=== PATIENT | female | born 1955 | race Caucasian/White ===

== ENCOUNTER → 2017-09-10 | Day surgery (SDC) | payer BC ==
[2017-09-08 11:46] LABS: BASOPHILS # (AUTO) 0.1 (0.0-0.1); BASOPHILS % 1.1 % (0.0-1.0); EOSINOPHILS # (AUTO) 0.1 (0.0-0.4); EOSINOPHILS % 2.1 % (0.0-6.0); HEMATOCRIT 45.2 % (34.2-44.1); LYMPHOCYTES % 34.7 % (18.0-39.1); MEAN CORPUSCULAR HEMOGLOBIN 31.1 pg (28-32); MEAN CORPUSCULAR HGB CONC 33.2 g/dL (31-35); MEAN CORPUSCULAR VOLUME 93.6 fL (81-99); MONOCYTES # (AUTO) 0.6 (0.2-0.8); MONOCYTES % 10.7 % (4.4-11.3); NEUTROPHILS # (AUTO) 2.9 (2.1-6.9); NEUTROPHILS % 51.2 % (38.7-80.0); PLATELET COUNT 240 x10e3/uL (140-360); RED BLOOD COUNT 4.83 x10e6/uL (3.6-5.1); RED CELL DISTRIBUTION WIDTH 13.3 % (11.7-14.4)
[~2017-09-10] MED LIST: ACETAMINOPHEN 1000 MG/100 ML IV ONE; CLINDAMYCIN PHOS 900MG/ D5W 50 50 ML IV ONE; DEXAMETHASONE SOD PHOS INJ 4 MG/ML VIAL ONE; FENTANYL CITRATE/PF 100MCG/2 ML INJ ONE; GABAPENTIN300 MG PO; GLYCOPYRROLATE INJ 1MG/ 5 ML SYR ONE; LEVOXYL175 MCG PO; LIDOCAINE HCL 2% LOCAL INJ 5 ML SDV VIAL INJ ONE; MIDAZOLAM HCL 2 MG/2 ML VIAL ONE; MYRBETRIQ50 MG PO; NEOSTIGMINE 5 MG/5ML SYR ONE; ONDANSETRON HCL INJ 2 MG/ML VIAL ONE; PHENTERMINE H37.5 MG PO; PROPOFOL IV EMULSION 10 MG/ML 20 ML VIAL ONE; SEVOFLURANE INHAL SOLN 250 ML PEN BTL ONE; SILVER NITRATE SWABS ONE; VIT D PO
--- NOTE | 2017-09-15 15:12 | Operative Report ---
DATE OF PROCEDURE: September 10, 2017 PREOPERATIVE DIAGNOSIS: Postmenopausal bleeding. POSTOPERATIVE DIAGNOSIS: Postmenopausal bleeding. PROCEDURE PERFORMED 1. Hysteroscopy. 2. Dilatation and curettage. INFECTION CONTROL COORDINATOR: None. ANESTHESIA: General. ESTIMATED BLOOD LOSS: Minimal. COMPLICATIONS: None. FINDINGS: Apparently normal uterine cavity during hysteroscopy. Small anteverted uterus. SPECIMENS: Endometrial curettings. INDICATIONS: The patient is a 61-year-old postmenopausal female who was noted to have postmenopausal bleeding. PROCEDURE: Prior to the procedure the risks, benefits and alternatives were discussed, and the patient agreed to proceed. Following anesthesia, the patient was placed in the modified dorsal lithotomy position in [facility], an acute care hospital. Prepping and draping were performed in the typical sterile fashion, and a time out was done. A weighted speculum was then placed in the vagina. The cervix was grasped with a single-toothed tenaculum. The cervix was sequentially dilated, and a hysteroscope was inserted with findings as previously mentioned. The TRUCLEAR device was then inserted into the hysteroscope and used to perform an endometrial curettage under direct visualization. A sharp curettage was then performed until a gritty texture was noted. Endometrial tissue was then sent to pathology. All instruments were removed from the patient. The tenaculum sites were noted to be hemostatic. The patient was awakened in stable condition and sent to the recovery room. All sponge, lap, needle and instrument counts were correct x2. Job#: [id number]
== END | disposition home or self-care (01) ==
LOC: OR 12:09
PROVIDERS: ATTEND Obstetrics & Gynecology Obstetrics
DX: N95.0 Postmenopausal bleeding (principal); E03.9 Hypothyroidism, unspecified; E66.01 Morbid (severe) obesity due to excess calories; Z88.0 Allergy status to penicillin; Z88.2 Allergy status to sulfonamides; Z88.8 Allergy status to other drugs, medicaments and biological substances; Z01.810 Encounter for preprocedural cardiovascular examination; Z01.812 Encounter for preprocedural laboratory examination
CPT/HCPCS: 36415; 58558; 85025; 88305; 93005; J1100; J2001; J2250; J2405; J3490

== ENCOUNTER 2020-10-07 07:54 | Inpatient (IN) | payer MEDICARE, OTHER ==
[~2020-10-07 07:54] MED LIST changes: -ACETAMINOPHEN 1000 MG/100 ML IV ONE; -CLINDAMYCIN PHOS 900MG/ D5W 50 50 ML IV ONE; -DEXAMETHASONE SOD PHOS INJ 4 MG/ML VIAL ONE; +FAMOTIDINE20 MG PO; -FENTANYL CITRATE/PF 100MCG/2 ML INJ ONE; -GLYCOPYRROLATE INJ 1MG/ 5 ML SYR ONE; -LIDOCAINE HCL 2% LOCAL INJ 5 ML SDV VIAL INJ ONE; -MIDAZOLAM HCL 2 MG/2 ML VIAL ONE; -NEOSTIGMINE 5 MG/5ML SYR ONE; +NUTRAVIEW PO; +OMEPRAZOLE40 MG PO; -ONDANSETRON HCL INJ 2 MG/ML VIAL ONE; +PROBIOTIC & AC1 EACH PO; -PROPOFOL IV EMULSION 10 MG/ML 20 ML VIAL ONE; -SEVOFLURANE INHAL SOLN 250 ML PEN BTL ONE; -SILVER NITRATE SWABS ONE; +VESICARE10 MG PO
[2020-10-07] MEDS ORDERED: LEVOFLOXACIN 500MG/D5W 100ML 100 ML IV ONE (08:12)
[2020-10-07] MEDS ORDERED: LYRICA75 MG PO (08:59)
[2020-10-07] MEDS ORDERED: BUPIVACAINE 0.25% 30ML SDV ONE (09:04)
[2020-10-07] MEDS ORDERED: DEXAMETHASONE SOD PHOS INJ 4 MG/ML VIAL ONE (12:25)
[2020-10-07] MEDS ORDERED: ROCURONIUM BROMIDE 10 MG/ML 5ML VIAL IV ONE (12:25)
[2020-10-07] MEDS ORDERED: ONDANSETRON HCL INJ 2MG/ML 2ML 2 MG/ML VIAL ONE ×3 (12:25→16:31)
[2020-10-07] MEDS ORDERED: ATROPINE SULFATE 1 MG/ML VIAL ONE (12:25)
[2020-10-07] MEDS ORDERED: SEVOFLURANE INHAL SOLN 250 ML PEN BTL ONE (12:25)
[2020-10-07] MEDS ORDERED: POVIDONE IODINE 0.05% 0.05 % ML PO ONE (12:25)
[2020-10-07] MEDS ORDERED: LIDOCAINE HCL 2% LOCAL INJ 5 ML SDV VIAL INJ ONE (12:25)
[2020-10-07] MEDS ORDERED: KETOROLAC TROMETHAMINE 30 MG/ML VIAL ONE (12:25)
[2020-10-07] MEDS ORDERED: PROPOFOL IV EMULSION 10 MG/ML 20 ML VIAL ONE (12:25)
[2020-10-07] MEDS ORDERED: NEOSTIGMINE 1 MG/ML 10ML VIAL ONE (12:25)
[2020-10-07] MEDS ORDERED: EPHEDRINE SULFATE INJ 50 MG/ML VIAL ONE (12:25)
[2020-10-07] MEDS ORDERED: FIBRIN FROZEN 2 ML SPRAY.GEL TOP ONE (12:49)
[2020-10-07] MEDS ORDERED: HYDROMORPHONE 1MG/1ML INJ ONE ×2 (13:36→13:56)
[2020-10-07] MEDS ORDERED: HYDROCODONE/APAP 7.5MG-325MG 1 EA TAB PO PRN (15:30)
[2020-10-07] MEDS ORDERED: ONDANSETRON HCL 4 MG ORAL DISINTEGRATING TAB PO PRN (15:30)
[2020-10-07] MEDS ORDERED: MORPHINE SULFATE INJ 2 MG/ML SYR IV PRN (15:30)
[2020-10-07] MEDS ORDERED: MORPHINE SULFATE INJ 2 MG/ML SYR ONE (16:31)
[2020-10-07] MEDS ORDERED: PREGABALIN 75 MG CAP ONE (16:31)
[2020-10-07] MEDS ORDERED: SCOPOLAMINE 1.5 MG PATCH ONE (16:31)
[2020-10-07] MEDS ORDERED: SODIUM CHLORIDE 0.9% 1000ML 1,000 ML ONE (16:32)
[2020-10-07] MEDS ORDERED: SCOPOLAMINE 1.5 MG PATCH TOP ONE (17:00)
[2020-10-07] MEDS: PREGABALIN 75 MG CAP PO SCH (17:00)
[2020-10-07] MEDS ORDERED: FAMOTIDINE 20 MG TAB PO SCH (21:00)
[2020-10-07] MEDS: SODIUM CHLORIDE 0.9% 1000ML 1,000 ML IV SCH (23:30)
[2020-10-08] MEDS ORDERED: SODIUM CHLORIDE 0.9% 1000ML 1,000 ML ONE ×2 (00:17→08:36)
[2020-10-08] MEDS ORDERED: MORPHINE SULFATE INJ 2 MG/ML SYR ONE ×3 (01:51→07:36)
[2020-10-08] MEDS ORDERED: LEVOTHYROXINE SODIUM 75 MCG TAB PO SCH (06:00)
[2020-10-08] MEDS ORDERED: LEVOTHYROXINE SODIUM 100 MCG TAB PO SCH (06:00)
[2020-10-08] MEDS: SODIUM CHLORIDE 0.9% 1000ML 1,000 ML IV SCH ×2 (07:30→14:49)
[2020-10-08] MEDS ORDERED: PANTOPRAZOLE SOD 40 MG TABEC PO SCH (07:30)
[2020-10-08] MEDS ORDERED: ONDANSETRON HCL 4 MG ORAL DISINTEGRATING TAB ONE (07:36)
[2020-10-08] MEDS ORDERED: ENOXAPARIN SOD INJ 40 MG/0.4 ML SYR SC ONE (07:46)
[2020-10-08] MEDS ORDERED: LEVOTHYROXINE SODIUM 75 MCG TAB ONE (07:46)
[2020-10-08] MEDS ORDERED: LEVOTHYROXINE SODIUM 100 MCG TAB ONE (07:46)
[2020-10-08] MEDS ORDERED: HYDROCODONE/APAP 7.5MG-325MG 1 EA TAB ONE (07:57)
[2020-10-08] MEDS: ENOXAPARIN SOD INJ 40 MG/0.4 ML SYR SC SCH ×2 (08:00→14:49)
[2020-10-08] MEDS ORDERED: CHOLECALCIFEROL 1,000 UNIT TAB PO SCH (09:00)
[2020-10-08] MEDS: PREGABALIN 75 MG CAP PO SCH (09:00)
[2020-10-08] MEDS ORDERED: NUTRAVIEW PO SCH (09:00)
[2020-10-08] MEDS ORDERED: SOLIFENACIN SUCCINATE 5 MG TAB PO SCH (09:00)
[2020-10-08] MEDS ORDERED: LACTOBACILLUS ACIDOPHILUS CAPSULE PO SCH (09:00)
[2020-10-08] MEDS ORDERED: HYDROCODONE/APAP 5MG-325MG TAB ONE (13:17)
[2020-10-08 16:07] VITALS: BP 133/67
== END 2020-10-08 16:15 | disposition home or self-care (01) | DRG 620 ==
LOC: OR 07:54 → IMCU 10:05
PROVIDERS: ADMIT Internal Medicine; ATTEND Internal Medicine
PROC: 0D164ZA Bypass Stomach to Jejunum, Percutaneous Endoscopic Approach (ICD-10-PCS; principal; 2020-10-07 10:00)
PROC: 0DP64CZ Removal of Extraluminal Device from Stomach, Percutaneous Endoscopic Approach (ICD-10-PCS; 2020-10-07 10:00)
DX: E66.01 Morbid (severe) obesity due to excess calories (principal); K90.9 Intestinal malabsorption, unspecified; Z68.43 Body mass index [BMI] 50.0-59.9, adult; G47.33 Obstructive sleep apnea (adult) (pediatric); K21.9 Gastro-esophageal reflux disease without esophagitis; E03.9 Hypothyroidism, unspecified; Z88.0 Allergy status to penicillin; Z88.2 Allergy status to sulfonamides; Z88.8 Allergy status to other drugs, medicaments and biological substances; Z83.3 Family history of diabetes mellitus; Z82.49 Family history of ischemic heart disease and other diseases of the circulatory system; Z20.822 Contact with and (suspected) exposure to COVID-19
CPT/HCPCS: 71046; 93005; 97139; J0461; J1100; J1170; J1650; J1885; J1956; J2001; J2270; J2405; J2710; J7030; Q0162; U0002